=== PATIENT | male | born 1970 | race Caucasian/White ===

== ENCOUNTER 2018-12-01 02:05 | Inpatient (IN) ==
[2018-12-01] MEDS ORDERED: Naloxone 0.4 MG/ML INJ IVP PRN ×2 (05:10→16:48)
[2018-12-01] MEDS ORDERED: Morphine Sulfate 2 MG/ML SYRINGE IVP ONE (05:24)
[2018-12-01] MEDS ORDERED: *HR* Heparin 5,000 UNIT/ML VIAL IVP PRN ×2 (05:27)
[2018-12-01] MEDS: Nitroglycerin 25 MG/250 ML INFUS..BTL IVC SCH ×2 (05:40→21:07)
[2018-12-01] MEDS: Heparin 25,000 UNIT/250 ML D5W 25,000 UNIT/250 ML IV.SOLN IVC SCH (05:42)
[2018-12-01 05:56] LABS: Basophils # 0.1 K/mcL (0.0-0.2); Basophils % 0.6 %; Eosinophils # 0.2 K/mcL (0.0-0.6); Eosinophils % 2.4 %; Hematocrit 39.7 % (37.5-50.1); Immature Granulocytes % 0.2 % (0-4); Lymphocytes # 2.5 K/mcL (0.6-4.6); Lymphocytes % 28.6 %; Mean Corpuscular HGB Conc 35.3 g/dL (31.6-35.5); Mean Corpuscular Hemoglobin 31.7 pg (28.0-33.3); Mean Platelet Volume 10.6 fL (9.4-12.4); Monocytes # 0.6 K/mcL (0.0-1.3); Monocytes % 7.2 %; Neutrophils # 5.3 K/mcL (1.6-8.9); Platelet Count 256 K/mcL (140-400); Red Blood Count 4.41 M/mcL (4.19-5.50); Red Cell Distribution Width 13.3 % (11.5-14.5); White Blood Count 8.7 K/mcL (4.3-11.1)
[2018-12-01 06:14] LABS: BUN/Creatinine Ratio 14 (6-26); Blood Urea Nitrogen 17 mg/dL (6-20); Carbon Dioxide 27 mEq/L (23-29); Chloride 104 mEq/L (98-107); Glucose 116 mg/dL (70-105); Osmolality,Calculated 293 (280-300); Potassium 3.3 mEq/L (3.5-5.1); Sodium 140 mEq/L (136-145); eGFR For African Americans > 60 (> 60); eGFR For Non-African Americans > 60 (> 60)
[2018-12-01 09:01] LABS: Heparin anti-factor XA UFH 0.48 IU/mL (0.30-0.70)
[2018-12-01 09:33] LABS: D-Dimer < 215 ng/mLFEU (0-500)
[2018-12-01] MEDS ORDERED: Morphine Sulfate 2 MG/ML SYRINGE IVP PRN (09:37)
[2018-12-01] MEDS ORDERED: *HR* Midazolam HCl 2 MG/2 ML VIAL ONE (10:03)
[2018-12-01] MEDS ORDERED: 0.9 % Sodium Chloride 1,000 ML ONE (10:03)
[2018-12-01] MEDS ORDERED: *HR* FentaNYL (PF) 100 MCG/2 ML VIAL ONE (10:03)
[2018-12-01] MEDS ORDERED: Heparin 1,000 UNITS/500 mL 500 ML ONE (10:04)
[2018-12-01] MEDS ORDERED: *HR* Heparin 10,000 UNIT/10 ML VIAL ONE (10:04)
[2018-12-01] MEDS ORDERED: ISOVUE-370 200 ML INFUS..BTL ONE (10:04)
[2018-12-01] MEDS ORDERED: Nitroglycerin 1,000 MCG/10 ML VIAL IV ONE (10:04)
[2018-12-01] MEDS ORDERED: Verapamil 5 MG/2 ML VIAL ONE (10:35)
[2018-12-01] MEDS ORDERED: *HR* Ticagrelor 90 MG TABLET ONE (11:10)
[2018-12-01] MEDS ORDERED: Ondansetron 4 MG/2 ML VIAL IVP PRN (11:20)
[2018-12-01] MEDS ORDERED: Aspirin 81 MG TAB.CHEW ONE (11:20)
[2018-12-01] MEDS ORDERED: Acetaminophen 325 MG TABLET PO PRN (16:48)
[2018-12-01] MEDS: traMADol 50 MG TABLET PO PRN (17:54)
[2018-12-01] MEDS: *HR* HYDROcodone/Acet 5/325 mg TABLET PO PRN (18:59)
[2018-12-01] MEDS: *HR* Ticagrelor 90 MG TABLET PO SCH (21:07)
[2018-12-02 05:30] LABS: Basophils # 0.1 K/mcL (0.0-0.2); Basophils % 0.7 %; Eosinophils # 0.2 K/mcL (0.0-0.6); Eosinophils % 2.2 %; Hemoglobin 12.9 g/dL (12.9-16.9); Immature Granulocytes % 0.2 % (0-4); Lymphocytes % 19.9 %; Mean Corpuscular HGB Conc 34.9 g/dL (31.6-35.5); Mean Corpuscular Hemoglobin 31.9 pg (28.0-33.3); Mean Corpuscular Volume 91.6 fL (83.0-100.0); Mean Platelet Volume 10.6 fL (9.4-12.4); Monocytes # 0.7 K/mcL (0.0-1.3); Monocytes % 7.4 %; Platelet Count 230 K/mcL (140-400); Red Blood Count 4.04 M/mcL (4.19-5.50); Red Cell Distribution Width 13.7 % (11.5-14.5); Segmented Neutrophils % 69.6 %
[2018-12-02] MEDS: *HR* HYDROcodone/Acet 5/325 mg TABLET PO PRN ×3 (05:31→18:44)
[2018-12-02 05:57] LABS: BUN/Creatinine Ratio 14 (6-26); Blood Urea Nitrogen 18 mg/dL (6-20); Calcium 8.8 mg/dL (8.6-10.3); Carbon Dioxide 25 mEq/L (23-29); Chloride 108 mEq/L (98-107); Glucose 93 mg/dL (70-105); Osmolality,Calculated 290 (280-300); Potassium 3.7 mEq/L (3.5-5.1); Sodium 139 mEq/L (136-145); eGFR For African Americans > 60 (> 60); eGFR For Non-African Americans > 60 (> 60)
[2018-12-02] MEDS: Heparin 25,000 UNIT/250 ML D5W 25,000 UNIT/250 ML IV.SOLN IVC SCH (06:27)
[2018-12-02] MEDS: *HR* Ticagrelor 90 MG TABLET PO SCH (09:27)
[2018-12-02] MEDS: Aspirin 81 MG TAB.CHEW PO SCH (09:27)
[2018-12-02] MEDS: *HR* LORazepam 0.5 MG TABLET PO PRN ×2 (14:32→20:49)
[2018-12-02] MEDS: Nicotine 21 MG PATCH.TD24 TD SCH (16:48)
[2018-12-02] MEDS ORDERED: Acetaminophen IV 500 MG/50 ML INFUS..BTL IVPB ONE (21:13)
[2018-12-02] MEDS: traMADol 50 MG TABLET PO PRN (21:18)
[2018-12-03] MEDS ORDERED: Morphine Sulfate 2 MG/ML SYRINGE IVP ONE (00:40)
[2018-12-03] MEDS ORDERED: Nitroglycerin 0.4 MG TAB.SUBL SL PRN (01:06)
[2018-12-03 05:47] LABS: Hematocrit 40.2 % (37.5-50.1); Hemoglobin 14.1 g/dL (12.9-16.9); Mean Corpuscular HGB Conc 35.1 g/dL (31.6-35.5); Mean Corpuscular Hemoglobin 31.7 pg (28.0-33.3); Mean Corpuscular Volume 90.3 fL (83.0-100.0); Mean Platelet Volume 10.9 fL (9.4-12.4); Platelet Count 249 K/mcL (140-400); Red Blood Count 4.45 M/mcL (4.19-5.50); Red Cell Distribution Width 13.3 % (11.5-14.5)
[2018-12-03 06:00] LABS: BUN/Creatinine Ratio 16 (6-26); Blood Urea Nitrogen 20 mg/dL (6-20); Calcium 8.8 mg/dL (8.6-10.3); Carbon Dioxide 23 mEq/L (23-29); Chloride 108 mEq/L (98-107); Glucose 92 mg/dL (70-105); Osmolality,Calculated 286 (280-300); Potassium 3.5 mEq/L (3.5-5.1); Sodium 137 mEq/L (136-145); eGFR For African Americans > 60 (> 60); eGFR For Non-African Americans > 60 (> 60)
[2018-12-03] MEDS ORDERED: hydroCHLOROthiazide 25 MG TABLET PO SCH (09:00)
[2018-12-03] MEDS: Aspirin 81 MG TAB.CHEW PO SCH (09:22)
[2018-12-03] MEDS: Nicotine 21 MG PATCH.TD24 TD SCH (09:22)
[2018-12-03] MEDS: *HR* HYDROcodone/Acet 5/325 mg TABLET PO PRN ×3 (10:21→22:28)
[2018-12-03] MEDS: traMADol 50 MG TABLET PO PRN (15:07)
[2018-12-03] MEDS: *HR* LORazepam 0.5 MG TABLET PO PRN (19:58)
[2018-12-04] MEDS: traMADol 50 MG TABLET PO PRN ×2 (01:05→12:28)
[2018-12-04 04:32] LABS: BUN/Creatinine Ratio 19 (6-26); Blood Urea Nitrogen 25 mg/dL (6-20); Calcium 9.3 mg/dL (8.6-10.3); Carbon Dioxide 24 mEq/L (23-29); Chloride 105 mEq/L (98-107); Glucose 101 mg/dL (70-105); Osmolality,Calculated 291 (280-300); Potassium 3.8 mEq/L (3.5-5.1); Sodium 138 mEq/L (136-145); eGFR For African Americans > 60 (> 60); eGFR For Non-African Americans 58 (> 60)
[2018-12-04] MEDS: Aspirin 81 MG TAB.CHEW PO SCH (07:52)
[2018-12-04] MEDS: *HR* HYDROcodone/Acet 5/325 mg TABLET PO PRN (07:52)
[2018-12-04] MEDS: Nicotine 21 MG PATCH.TD24 TD SCH (07:56)
[2018-12-04] MEDS ORDERED: hydroCHLOROthiazide 25 MG TABLET PO SCH (09:00)
[2018-12-04 10:08] VITALS: BP 119/71
[2018-12-05 11:03] LABS: CKMB Percent NOT DONE (0.0-5.0)
[2018-12-05 11:03] LABS: CKMB Percent NOT DONE (0.0-5.0)
== END 2018-12-04 13:12 | disposition home or self-care (01) | DRG 174 ==
LOC: 2NENU → SUATTDRO 03:39
PROVIDERS: ADMIT Family Medicine; ATTEND Internal Medicine

== ENCOUNTER 2021-04-10 02:10 | Observation (INO) ==
[2021-04-10] MEDS ORDERED: Naloxone 0.4 MG/ML INJ IVP PRN ×2 (05:00→12:37)
[2021-04-10] MEDS ORDERED: Ondansetron 4 MG/2 ML VIAL IVP PRN (05:00)
[2021-04-10] MEDS ORDERED: *HR* Heparin 5,000 UNIT/ML VIAL IVP PRN ×2 (05:13)
[2021-04-10] MEDS ORDERED: Heparin 25,000UNIT/250ML 1/2NS 25,000 UNIT/250 ML IV.SOLN IVC SCH (05:15)
[2021-04-10] MEDS ORDERED: carvediloL 6.25 MG TABLET PO SCH (06:00)
[2021-04-10 06:08] LABS: Hematocrit 39.4 % (37.5-50.1); Hemoglobin 12.8 g/dL (12.9-16.9); Mean Corpuscular HGB Conc 32.5 g/dL (31.6-35.5); Mean Corpuscular Hemoglobin 29.1 pg (28.0-33.3); Mean Corpuscular Volume 89.5 fL (83.0-100.0); Mean Platelet Volume 10.3 fL (9.4-12.4); Platelet Count 240 K/mcL (140-400); White Blood Count 9.3 K/mcL (4.3-11.1)
[2021-04-10 06:44] LABS: BUN/Creatinine Ratio 15 (6-26); Blood Urea Nitrogen 20 mg/dL (6-20); Carbon Dioxide 24 mEq/L (23-29); Chloride 108 mEq/L (98-107); Glucose 92 mg/dL (70-105); Osmolality,Calculated 294 (280-300); Potassium 3.3 mEq/L (3.5-5.1); Sodium 141 mEq/L (136-145); eGFR For African Americans > 60 (> 60); eGFR For Non-African Americans 56 (> 60)
[2021-04-10] MEDS ORDERED: carvediloL 6.25 MG TABLET PO ONE (07:12)
[2021-04-10] MEDS ORDERED: Aspirin 325 MG TABLET PO ONE (07:12)
[2021-04-10] MEDS ORDERED: Perflutren Lipid Microsphere 1.3 ML in 0.9 % Sodium Chloride 8.7 ML IVP PRN (07:24)
[2021-04-10] MEDS: amLODIPine 5 MG TABLET PO SCH (08:40)
[2021-04-10] MEDS: Aspirin Enteric Coated 81 MG Tablet PO SCH (08:40)
[2021-04-10] MEDS: carvediloL 6.25 MG TABLET PO SCH (17:05)
[2021-04-11] MEDS: Acetaminophen 325 MG TABLET PO PRN ×2 (01:10→19:56)
[2021-04-11 02:06] LABS: Hematocrit 39.3 % (37.5-50.1); Hemoglobin 12.8 g/dL (12.9-16.9); Mean Corpuscular HGB Conc 32.6 g/dL (31.6-35.5); Mean Corpuscular Hemoglobin 29.5 pg (28.0-33.3); Mean Corpuscular Volume 90.6 fL (83.0-100.0); Mean Platelet Volume 11.4 fL (9.4-12.4); Platelet Count 257 K/mcL (140-400); Red Blood Count 4.34 M/mcL (4.19-5.50); Red Cell Distribution Width 12.9 % (11.5-14.5); White Blood Count 10.1 K/mcL (4.3-11.1)
[2021-04-11 02:25] LABS: Calcium 8.9 mg/dL (8.6-10.3); Magnesium 1.8 mg/dL (1.6-2.6); Potassium 3.6 mEq/L (3.5-5.1)
[2021-04-11] MEDS: lisinopriL 20 MG TABLET PO SCH (08:59)
[2021-04-11] MEDS: Aspirin Enteric Coated 81 MG Tablet PO SCH (08:59)
[2021-04-11] MEDS: amLODIPine 5 MG TABLET PO SCH (09:00)
[2021-04-11] MEDS: carvediloL 6.25 MG TABLET PO SCH (09:00)
[2021-04-11] MEDS ORDERED: NON-FORMULARY MEDICATION 1 EACH EACH (Amlodipine Besylate 10 MG Tablet) PO SCH (09:00)
[2021-04-11] MEDS ORDERED: NON-FORMULARY MEDICATION 1 EACH EACH (Carvedilol [Carvedilol] 12.5 MG Tablet) PO SCH (09:00)
[2021-04-11] MEDS ORDERED: carvediloL 6.25 MG TABLET PO ONE (12:22)
[2021-04-11] MEDS: carvediloL 25 MG TABLET PO SCH (17:24)
[2021-04-12 01:59] LABS: Hematocrit 37.2 % (37.5-50.1); Hemoglobin 12.3 g/dL (12.9-16.9); Mean Corpuscular HGB Conc 33.1 g/dL (31.6-35.5); Mean Corpuscular Hemoglobin 29.5 pg (28.0-33.3); Mean Corpuscular Volume 89.2 fL (83.0-100.0); Mean Platelet Volume 10.8 fL (9.4-12.4); Platelet Count 272 K/mcL (140-400); Red Blood Count 4.17 M/mcL (4.19-5.50); Red Cell Distribution Width 12.7 % (11.5-14.5); White Blood Count 7.8 K/mcL (4.3-11.1)
[2021-04-12 02:17] LABS: BUN/Creatinine Ratio 15 (6-26); Blood Urea Nitrogen 23 mg/dL (6-20); Calcium 8.8 mg/dL (8.6-10.3); Carbon Dioxide 24 mEq/L (23-29); Chloride 108 mEq/L (98-107); Glucose 123 mg/dL (70-105); Osmolality,Calculated 291 (280-300); Potassium 3.4 mEq/L (3.5-5.1); Sodium 138 mEq/L (136-145); eGFR For African Americans > 60 (> 60); eGFR For Non-African Americans 50 (> 60)
[2021-04-12] MEDS: Acetaminophen 325 MG TABLET PO PRN (04:13)
[2021-04-12] MEDS: Aspirin Enteric Coated 81 MG Tablet PO SCH (07:55)
[2021-04-12] MEDS: lisinopriL 20 MG TABLET PO SCH (07:55)
[2021-04-12] MEDS: carvediloL 25 MG TABLET PO SCH (07:56)
[2021-04-12] MEDS: amLODIPine 5 MG TABLET PO SCH (07:57)
[2021-04-12 09:50] VITALS: BP 160/90; PULSE 60; TEMP 97.6; O2SAT 94
== END 2021-04-12 11:54 | disposition home or self-care (01) ==
LOC: 2NENU → SUATTDRO 04:20
PROVIDERS: ADMIT Student in an Organized Health Care Education/Training Program; ATTEND Internal Medicine

== ENCOUNTER 2021-06-21 01:52 | Observation (INO) ==
[2021-06-21] MEDS ORDERED: Ondansetron ODT 4 MG TAB.RAPDIS SL PRN (08:01)
[2021-06-21] MEDS ORDERED: Naloxone 0.4 MG/ML INJ IVP PRN (08:01)
[2021-06-21] MEDS ORDERED: Perflutren Lipid Microsphere 1.3 ML in 0.9 % Sodium Chloride 8.7 ML IVP PRN (08:03)
[2021-06-21] MEDS ORDERED: 0.9 % Sodium Chloride 1,000 ML IVC SCH (08:15)
[2021-06-21] MEDS ORDERED: Aspirin Enteric Coated 81 MG Tablet PO SCH (09:00)
[2021-06-21 09:27] LABS: Hematocrit 38.3 % (37.5-50.1); Hemoglobin 12.8 g/dL (12.9-16.9); Mean Corpuscular HGB Conc 33.4 g/dL (31.6-35.5); Mean Corpuscular Volume 89.7 fL (83.0-100.0); Mean Platelet Volume 11.8 fL (9.4-12.4); Platelet Count 237 K/mcL (140-400); Red Blood Count 4.27 M/mcL (4.19-5.50); Red Cell Distribution Width 13.5 % (11.5-14.5)
[2021-06-21 10:13] LABS: Calcium 9.2 mg/dL (8.6-10.3); Potassium 3.1 mEq/L (3.5-5.1)
[2021-06-21 10:14] LABS: Chol/HDL Ratio 3.1 (0-4.9); Magnesium 2.2 mg/dL (1.6-2.6); Phosphorous 3.1 mg/dL (2.7-4.5); Troponin I 0.03 ng/mL (< 0.04)
[2021-06-21 10:38] LABS: Estimated Average Glucose 94 mg/dl; Hemoglobin A1C 4.9 %
[2021-06-21] MEDS: Acetaminophen 325 MG TABLET PO PRN (19:59)
[2021-06-22] MEDS: *HR* Heparin 5,000 UNIT/ML VIAL SQ SCH ×3 (06:21→20:39)
[2021-06-22 07:30] LABS: Hematocrit 38.6 % (37.5-50.1); Hemoglobin 12.7 g/dL (12.9-16.9); Mean Corpuscular HGB Conc 32.9 g/dL (31.6-35.5); Mean Corpuscular Hemoglobin 30.2 pg (28.0-33.3); Mean Corpuscular Volume 91.7 fL (83.0-100.0); Mean Platelet Volume 11.4 fL (9.4-12.4); Platelet Count 201 K/mcL (140-400); Red Blood Count 4.21 M/mcL (4.19-5.50); Red Cell Distribution Width 13.5 % (11.5-14.5); White Blood Count 8.4 K/mcL (4.3-11.1)
[2021-06-22 07:54] LABS: Calcium 8.7 mg/dL (8.6-10.3); Potassium 2.9 mEq/L (3.5-5.1)
[2021-06-22] MEDS: carvediloL 25 MG TABLET PO SCH ×2 (08:43→17:48)
[2021-06-22] MEDS: amLODIPine 5 MG TABLET PO SCH (08:43)
[2021-06-22] MEDS: lisinopriL 10 MG TABLET PO SCH (14:40)
[2021-06-22 18:34] LABS: Bilirubin,Urine Negative (Negative); Blood,Urine Negative (Negative); Clarity,Urine Clear (Clear); Color,Urine Colorless (Yellow); Glucose,Urine (UA) Normal (Normal); Ketones,Urine Negative (Negative); Leukocyte Esterase,Urine Negative (Negative); Nitrite,Urine Negative (Negative); Protein,Urine Trace mg/dL (Neg-Trace); Specific Gravity,Urine 1.016 (1.010-1.025); Urobilinogen,Urine Normal (Normal)
[2021-06-22 18:47] LABS: Potassium,Urine 38.6 mEq/L; Sodium, Urine 128.2 mEq/L
[2021-06-22] MEDS: Acetaminophen 325 MG TABLET PO PRN (20:40)
[2021-06-23] MEDS: *HR* Heparin 5,000 UNIT/ML VIAL SQ SCH ×3 (05:49→21:26)
[2021-06-23] MEDS: carvediloL 25 MG TABLET PO SCH ×2 (08:17→17:19)
[2021-06-23] MEDS: lisinopriL 10 MG TABLET PO SCH (08:17)
[2021-06-23] MEDS: Aspirin 81 MG TAB.CHEW PO SCH (08:17)
[2021-06-23] MEDS: amLODIPine 5 MG TABLET PO SCH (08:17)
[2021-06-24] MEDS ORDERED: *HR* Labetalol 20 MG/4 ML SYRINGE IVP ONE (03:31)
[2021-06-24 04:54] LABS: BUN/Creatinine Ratio 16 (6-26); Blood Urea Nitrogen 22 mg/dL (6-20); Calcium 9.3 mg/dL (8.6-10.3); Carbon Dioxide 24 mEq/L (23-29); Chloride 110 mEq/L (98-107); Glucose 97 mg/dL (70-105); Magnesium 1.6 mg/dL (1.6-2.6); Osmolality,Calculated 297 (280-300); Potassium 3.2 mEq/L (3.5-5.1); Sodium 142 mEq/L (136-145); eGFR For African Americans > 60 (> 60); eGFR For Non-African Americans 54 (> 60)
[2021-06-24] MEDS: *HR* Heparin 5,000 UNIT/ML VIAL SQ SCH ×3 (05:23→20:14)
[2021-06-24] MEDS: lisinopriL 10 MG TABLET PO SCH (07:14)
[2021-06-24] MEDS: carvediloL 25 MG TABLET PO SCH ×2 (07:14→16:45)
[2021-06-24] MEDS: Aspirin 81 MG TAB.CHEW PO SCH (07:14)
[2021-06-24] MEDS: amLODIPine 5 MG TABLET PO SCH (07:14)
[2021-06-24] MEDS ORDERED: lisinopriL 10 MG TABLET PO SCH (09:00)
[2021-06-24] MEDS ORDERED: lisinopriL 10 MG TABLET PO ONE (09:19)
[2021-06-25] MEDS: *HR* Heparin 5,000 UNIT/ML VIAL SQ SCH ×3 (05:32→20:19)
[2021-06-25] MEDS: amLODIPine 5 MG TABLET PO SCH (08:38)
[2021-06-25] MEDS: carvediloL 25 MG TABLET PO SCH ×2 (08:38→16:47)
[2021-06-25] MEDS: Aspirin 81 MG TAB.CHEW PO SCH (08:38)
[2021-06-25] MEDS: lisinopriL 10 MG TABLET PO SCH (08:38)
[2021-06-26] MEDS: *HR* Heparin 5,000 UNIT/ML VIAL SQ SCH ×3 (05:09→19:53)
[2021-06-26] MEDS: carvediloL 25 MG TABLET PO SCH ×2 (08:47→17:00)
[2021-06-26] MEDS: Aspirin 81 MG TAB.CHEW PO SCH (08:47)
[2021-06-26] MEDS: lisinopriL 10 MG TABLET PO SCH (08:47)
[2021-06-26] MEDS: amLODIPine 5 MG TABLET PO SCH (08:47)
[2021-06-27] MEDS: *HR* Heparin 5,000 UNIT/ML VIAL SQ SCH ×3 (05:10→20:05)
[2021-06-27] MEDS: Aspirin 81 MG TAB.CHEW PO SCH (08:05)
[2021-06-27] MEDS: amLODIPine 5 MG TABLET PO SCH (08:05)
[2021-06-27] MEDS: lisinopriL 10 MG TABLET PO SCH (08:05)
[2021-06-27] MEDS: carvediloL 25 MG TABLET PO SCH ×2 (08:05→16:29)
[2021-06-28] MEDS: *HR* Heparin 5,000 UNIT/ML VIAL SQ SCH ×3 (05:09→20:58)
[2021-06-28] MEDS: Aspirin 81 MG TAB.CHEW PO SCH (08:03)
[2021-06-28] MEDS: carvediloL 25 MG TABLET PO SCH ×2 (08:03→16:39)
[2021-06-28] MEDS: amLODIPine 5 MG TABLET PO SCH (08:03)
[2021-06-28] MEDS: lisinopriL 10 MG TABLET PO SCH (08:03)
[2021-06-28] MEDS ORDERED: Moderna Covid-19 Vaccine 100MCG/0.5mL IM ONE (16:09)
[2021-06-28 19:48] VITALS: BP 154/77; PULSE 58; TEMP 98.6; O2SAT 97
[2021-06-29] MEDS: *HR* Heparin 5,000 UNIT/ML VIAL SQ SCH (04:51)
[2021-06-29] MEDS: amLODIPine 5 MG TABLET PO SCH (07:18)
[2021-06-29] MEDS: Aspirin 81 MG TAB.CHEW PO SCH (07:18)
[2021-06-29] MEDS: lisinopriL 10 MG TABLET PO SCH (07:18)
[2021-06-29] MEDS: carvediloL 25 MG TABLET PO SCH (07:19)
== END 2021-06-29 09:43 ==
LOC: 3NENU → SUATTDRO 07:09
PROVIDERS: ADMIT Internal Medicine; ATTEND Internal Medicine